=== PATIENT | female | born 1985 | race Caucasian/White ===

== ENCOUNTER 2017-04-16 08:11 | Emergency (ER) | payer OTHER ==
[2017-04-16 08:17] VITALS: BP 122/69; PULSE 100; TEMP 97.7; BMI 26.7
--- NOTE | 2017-04-16 08:53 | PDOC ---
History of Present Illness - General Chief Complaint: Cold Symptoms Stated Complaint: Cold Symptoms Time Seen by Provider: 04/16/17 08:38 History Source: Patient Exam Limitations: No Limitations - History of Present Illness Initial Comments: 04/16/17 09:11 Timing/Duration: reports: just prior to arrival Severity: reports: mild Associated Symptoms: reports: denies symptoms, cough, facial pain, nasal congestion. denies: chest pain/soreness, fever/chills, sore throat Past History - Travel Traveled outside of the country in the last 30 days: No Close contact w/someone who was outside of country & ill: No - Past Medical History Allergies/Adverse Reactions: Allergies Allergy/AdvReac Type Severity Reaction Status Date / Time No Known Allergies Allergy Verified 04/16/17 08:16 Home Medications: Ambulatory Orders Cetirizine HCl [Zyrtec -] 10 mg DAILY 04/16/17 Pnv No.122/Iron/Folic Acid [ Multi Tablet] 1 tab DAILY 04/16/17 Other medical history: none - Psycho/Social/Smoking Cessation Hx Anxiety: No Suicidal Ideation: No Smoking Status: Yes Smoking History: Never smoked Number of Cigarettes Smoked Daily: 1 Hx Alcohol Use: No Drug/Substance Use Hx: No Substance Use Type: None Respiratory Specific PMHX - Complaint Specific PMHX Bronchitis: No Pneumonia: No Review of Systems - Review of Systems Able to Perform ROS?: Yes Is the patient limited Haitian proficient: Yes Constitutional: Yes: Symptoms Reported, See HPI, Malaise. No: Fever, Loss of Appetite HEENTM: Yes: Symptoms Reported, See HPI, Ear Pain, Nose Congestion, Other ( symptoms as tenderness,). No: Difficulty Swallowing Respiratory: Yes: Symptoms reported, See HPI. No: Cough, Shortness of Breath Musculoskeletal: No: Symptoms Reported Integumentary: Yes: See HPI. No: Symptoms Reported All Other Systems: Reviewed and Negative *Physical Exam - Vital Signs Last Vital Signs Temp Pulse Resp BP Pulse Ox 97.7 F 100 H 20 122/69 100 04/16/17 08:13 04/16/17 08:13 04/16/17 08:13 04/16/17 08:13 04/16/17 08:13 - Physical Exam General Appearance: Yes: Nourished, Appropriately Dressed, Apparent Distress, Mild Distress HEENT: positive: HEATHER, Normal ENT Inspection, Rhinorrhea, Sinus Tenderness ( mild frontal sinus tenderness, but no crepitus or step-offs. Has some clear nasal drainage, and noted posterior sinus drainage that appears clear. No redness swelling or exudate and tonsils.). negative: TMs Normal Neck: positive: Supple. negative: Tender Respiratory/Chest: positive: Lungs Clear, Normal Breath Sounds. negative: Respiratory Distress Cardiovascular: positive: Regular Rhythm Extremity: positive: Normal Capillary Refill, Normal Inspection Integumentary: positive: Normal Color, Dry, Warm Neurologic: positive: shell trim operator II-XII NML intact, Fully Oriented, Alert, Normal Mood/ Affect, Normal Response, Motor Strength /5 Progress Note - Progress Note Progress Note: Allergic rhinitis we will treat with antihistamines and conservative measures, no evidence of bacterial infection. *DC/Admit/Observation/Transfer Diagnosis at time of Disposition: Allergic rhinitis Qualifiers: Chronicity: acute Allergic rhinitis trigger: unspecified Allergic rhinitis seasonality: unspecified seasonality Qualified Code(s): J30.9 - Allergic rhinitis, unspecified - Discharge Dispostion Disposition: HOME Condition at time of disposition: Stable Admit: No - Referrals Referrals: Katy Brown MD [Primary Care Provider] - - Patient Instructions Printed Discharge Instructions: DI for Allergic Rhinitis Additional Instructions: Rest, drink lots of fluids: Teas, water, soups Saltwater gargles. Consider humidifier in room at night Steamy showers/seem to face break up mucus Avoid contact with allergens, exposure to pollens, close windows on a windy day Lots of handwashing and good hygiene Continue [id number] medications for symptomatic relief- may use allergic eyedrops for itching I Continue antihistamines daily until pollen season is over; Benadryl at nighttime as will make sleepy Tylenol or Motrin for fever and pain Ear solution, 3-5 drops times a day for 5 days Followup with private physician in one to 2 days as needed Consider following up with an woodworking shop hand/draw press operator for skin testing and possible allergy shots Return to emergency department for worsened symptoms, fevers, dehydration - Post Discharge Activity Work/School Note: Back to Work
--- NOTE | 2017-04-16 09:51 | PDOC ---
History of Present Illness - General Chief Complaint: Cold Symptoms Stated Complaint: Cold Symptoms Time Seen by Provider: 04/16/17 08:38 History Source: Patient Exam Limitations: No Limitations - History of Present Illness Initial Comments: 04/17/17 07:25 Patient is 3 months , and here with complaints of runny nose, stuffiness , sinus pressure and clear drainage. Denies fevers, but feels may be adding another sinus infection. Has not taken any medication. Timing/Duration: reports: constant, changing over time Severity: reports: mild Past History - Travel Traveled outside of the country in the last 30 days: No Close contact w/someone who was outside of country & ill: No - Past Medical History Allergies/Adverse Reactions: Allergies Allergy/AdvReac Type Severity Reaction Status Date / Time No Known Allergies Allergy Verified 04/16/17 08:16 Home Medications: Ambulatory Orders Cetirizine HCl [Zyrtec -] 10 mg DAILY 04/16/17 Pnv No.122/Iron/Folic Acid [ Multi Tablet] 1 tab DAILY 04/16/17 Other medical history: none - Psycho/Social/Smoking Cessation Hx Anxiety: No Suicidal Ideation: No Smoking Status: Yes Smoking History: Never smoked Number of Cigarettes Smoked Daily: 1 Hx Alcohol Use: No Drug/Substance Use Hx: No Substance Use Type: None Respiratory Specific PMHX - Complaint Specific PMHX Bronchitis: No Pneumonia: No Review of Systems - Review of Systems Able to Perform ROS?: Yes Is the patient limited Stateless proficient: Yes Constitutional: Yes: Symptoms Reported, See HPI, Chills, Malaise. No: Fever, Loss of Appetite HEENTM: Yes: Symptoms Reported, Nose Congestion Respiratory: Yes: Symptoms reported, See HPI, Cough (moist nonproductive). No: Wheezing Cardiac (ROS): No: Symptoms Reported Musculoskeletal: Yes: Symptoms Reported Integumentary: Yes: Symptoms Reported All Other Systems: Reviewed and Negative *Physical Exam - Vital Signs Last Vital Signs Temp Pulse Resp BP Pulse Ox 97.7 F 100 H 20 122/69 100 04/16/17 08:13 04/16/17 08:13 04/16/17 08:13 04/16/17 08:13 04/16/17 08:13 - Physical Exam General Appearance: Yes: Nourished, Appropriately Dressed, Apparent Distress HEENT: positive: HEATHER, Normal ENT Inspection, TMs Normal, Pharynx Normal, Rhinorrhea, Sinus Tenderness (, no erythema, and not severely painful). negative: Pharyngeal Erythema Neck: positive: Tender, Supple. negative: Lymphadenopathy (R), Lymphadenopathy (L) Respiratory/Chest: positive: Lungs Clear, Normal Breath Sounds Cardiovascular: positive: Regular Rhythm Gastrointestinal/Abdominal: positive: Normal Bowel Sounds, Soft. negative: Tender Extremity: positive: Normal Range of Motion Integumentary: positive: Normal Color, Dry, Warm Neurologic: positive: rubber goods inspector tester II-XII NML intact, Fully Oriented, Alert, Normal Mood/ Affect, Normal Response, Motor Strength 5 Progress Note - Progress Note Progress Note: Allergic Rhinitis, Will treat with Benadryl and conservative measures *DC/Admit/Observation/Transfer Diagnosis at time of Disposition: Allergic rhinitis Qualifiers: Chronicity: acute Allergic rhinitis trigger: unspecified Allergic rhinitis seasonality: unspecified seasonality Qualified Code(s): J30.9 - Allergic rhinitis, unspecified - Discharge Dispostion Disposition: HOME Condition at time of disposition: Stable Admit: No - Referrals Referrals: Katy Brown MD [Primary Care Provider] - - Patient Instructions Printed Discharge Instructions: DI for Allergic Rhinitis Additional Instructions: Rest, drink lots of fluids: Teas, water, soups Saltwater gargles. Consider humidifier in room at night Steamy showers/seem to face break up mucus Avoid contact with allergens, exposure to pollens, close windows on a windy day Lots of handwashing and good hygiene Continue [id number] medications for symptomatic relief- may use allergic eyedrops for itching I Continue antihistamines daily until pollen season is over; Benadryl at nighttime as will make sleepy Tylenol or Motrin for fever and pain Ear solution, 3-5 drops times a day for 5 days Followup with private physician in one to 2 days as needed Consider following up with an printing press operator/dental ceramist helper for skin testing and possible allergy shots Return to emergency department for worsened symptoms, fevers, dehydration - Post Discharge Activity Work/School Note: Back to Work
== END 2017-04-16 11:13 | disposition home or self-care (01) ==
LOC: JERFT 08:11
DX: J30.9 Allergic rhinitis, unspecified (principal)
CPT/HCPCS: 99281-25

== ENCOUNTER 2017-09-23 06:25 | Inpatient (IN) | payer OTHER ==
[2017-09-23] MEDS ORDERED: CITRIC ACID/SODIUM CITRATE 30 ML UNIT-DOSE CUP PO ONE (06:52)
[2017-09-23] MEDS ORDERED: ELECTROLYTE-148 SOLN 500 ML IV ONE (06:52)
[2017-09-23 07:31] VITALS: BMI 31.3
[2017-09-23] MEDS: ELECTROLYTE-148 SOLN 1,000 ML IV SCH (07:37)
[2017-09-23] MEDS ORDERED: TUBERCULIN PPD 5 TU/0.1ML SYRINGE (IN PATIENT USE ONLY) ID ONE (08:00)
[2017-09-23] MEDS ORDERED: oxyCODONE HCL 5 MG TABLET PO PRN ×2 (08:15)
[2017-09-23] MEDS ORDERED: METHYLERGONOVINE MALEATE 0.2 MG/1 ML AMP IM PRN (08:15)
[2017-09-23] MEDS ORDERED: SENNOSIDES/DOCUSATE COMBO (SENNA PLUS) TABLET (UD) PO PRN (08:15)
[2017-09-23] MEDS ORDERED: IBUPROFEN 600 MG TABLET (FP) PO PRN (08:15)
--- NOTE | 2017-09-23 08:22 | HP ---
Past Medical History - Primary Care Physician PCP:: Rosario Villa - Admission Chief Complaint: Here for scheduled delivery History of Present Illness: 31 y/o with SIUP at 39 weeks here for scheduled delivery 2/2 malpresentation. Baby breech in office at last check, on bedside ultrasound today, baby transverse with head to maternal right. uncomplciated. History Source: Patient, Medical Record Limitations to Obtaining History: No Limitations - Past Medical History Cardiovascular: No: HTN Pulmonary: No: Asthma, COPD Gastrointestinal: No: GERD, Irritable Bowel Disease Hepatobiliary: No: Hepatitis B, Hepatitis C Renal/: No: UTI ...: 3 ...Para: 1 ...Term: 1 ...: 0 ...Induced : 1 ...LMP: 12/24/16 ... Weeks Gestation by Dates: 39.1 ...EDC by Dates: 09/29/17 ...EDC by Sono: 09/29/17 Heme/Onc: No: Anemia Infectious Disease: Yes: STD's (h/o Chlamdyia in 2008). No: HIV, MRSA Endocrine: No: Hyperthyroidism, Hypothyroidism - Past Surgical History Past Surgical History: Yes: None Hx Myomectomy: No Hx Transabdominal Cerclage: No - Smoking History Smoking history: Never smoked Have you smoked in the past 12 months: No Aproximately how many cigarettes per day: 1 - Alcohol/Substance Use Hx Alcohol Use: No - Social History Usual Living Arrangement: Yes: With Spouse ADL: Independent History of Recent Travel: No Home Medications - Allergies Allergies/Adverse Reactions: Allergies Allergy/AdvReac Type Severity Reaction Status Date / Time No Known Allergies Allergy Verified 04/16/17 08:16 - Home Medications Home Medications: Ambulatory Orders Pnv No.122/Iron/Folic Acid [ Multi Tablet] 1 tab DAILY 04/16/17 Probiotic 1 tab PO DAILY 09/23/17 Review of Systems - Review of Systems Constitutional: reports: No Symptoms Eyes: reports: No Symptoms HENT: reports: No Symptoms Neck: reports: No Symptoms Cardiovascular: reports: No Symptoms Respiratory: reports: No Symptoms Gastrointestinal: reports: No Symptoms Genitourinary: reports: No Symptoms Breasts: reports: No Symptoms Reported Musculoskeletal: reports: No Symptoms Integumentary: reports: No Symptoms Neurological: reports: No Symptoms Endocrine: reports: No Symptoms Hematology/Lymphatic: reports: No Symptoms Psychiatric: reports: No Symptoms Physical Exam - Maternity Vital Signs: Vital Signs Temperature 98.4 F 09/23/17 07:20 Pulse Rate 85 09/23/17 07:20 Respiratory Rate 20 09/23/17 07:20 Blood Pressure 138/81 09/23/17 07:20 O2 Sat by Pulse Oximetry (%) Constitutional: Yes: Well Nourished, No Distress, Calm Eyes: Yes: Conjunctiva Clear, EOM Intact HENT: Yes: Atraumatic, Normocephalic Neck: Yes: Supple, Trachea Midline Cardiovascular: Yes: Regular Rate and Rhythm Lungs: Clear to auscultation - Abdominal Exam/OB Number of Fetuses: Single Presentation: Transverse Category: I Accelerations: Uniform Decelerations: None - Vaginal Exam/OB Amniotic Membrane Status: Intact - Physical Exam Psychiatric: Yes: Alert, Oriented Hemorrhage Risk Assessment - Risk Factors Medium Risk Factors: Yes: None High Risk Factors: Yes: None Risk Score: 1 Risk Level: Medium Risk Problem List - Problems (1) Malpresentation of fetus Code(s): O32.9XX0 - MATERNAL CARE FOR MALPRESENTATION OF FETUS, UNSP, UNSP (2) Term Code(s): Z34.80 - ENCOUNTER FOR SUPRVSN OF NORMAL , UNSP TRIMESTER Assessment/Plan 31 y/o with SIUP at 39 weeks, for c section 2/2 malpresentatin - AFVSS - FHTS cat 1 - NPO, SCDs, Sethi - for delivery, nursing and anesthesia aware - consents signed
[2017-09-23] MEDS ORDERED: ONDANSETRON 4 MG/2 ML VIAL IVPUSH PRN (08:31)
--- NOTE | 2017-09-23 09:24 | SURG ---
Surgery President And Chief Operating Officer Note President And Chief Operating Officer: Ambrosio Ulloa PA-C Date of Service: 09/23/17 Diagnosis: Single intrauterine (39 weeks) here for scheduled delivery 2/ 2 malpresentation Procedure: section I was present for the entirety of the operative procedure. For further detail, please refer to operative report. Visit type - Case Type Case Type: Scheduled Admission - New patient This patient is new to me today: Yes Date on this admission: 09/23/17
--- NOTE | 2017-09-23 09:54 | OP ---
Operative Note - Note: Operative Date: 09/23/17 Pre-Operative Diagnosis: malpresentation - transverse Operation: primary low transverse delivery Findings: normal b/l tubes and ovaries Post-Operative Diagnosis: Same as Pre-op Surgeon: Rosario Villa Skin Lifter Bacon: Ambrosio Ulloa Anesthesiologist/HOUSEHOLD APPLIANCE INSTALLER: Marko Chavez Anesthesia: Spinal Specimens Removed: placenta, cord blood collection Estimated Blood Loss (mls): 700 Operative Report Dictated: Yes
[2017-09-23] MEDS: OXYTOCIN 20 UNITS in 0.9% NS 20 UNIT/1,000 ML INFUS.BAG IV SCH (10:33)
[2017-09-23] MEDS: IBUPROFEN 800 MG/8 ML IJ IVPB PRN ×2 (11:16→22:06)
--- NOTE | 2017-09-23 13:18 | OP ---
DATE OF OPERATION: 09/23/2017 PREOPERATIVE DIAGNOSIS: Malpresentation, single intrauterine at 39 weeks. POSTOPERATIVE DIAGNOSIS: Malpresentation, single intrauterine at 39 weeks. PROCEDURE: Primary low transverse section. SURGEON: Rosario Villa DO MANAGER IT SECURITY: PATRICIO Maguire ANESTHESIA: Spinal by Dr. Chavez ESTIMATED BLOOD LOSS: 700 mL. COMPLICATIONS: None. Sponge, needle, and instrument count correct at the end of the case. DISPOSITION: Stable to PACU. BRIEF HISTORY AND PROCEDURE: The patient is a 31-year-old female with a known malpresenting fetus who was counseled on her options in the office including an external cephalic version versus a delivery. The patient declined attempted external cephalic version and elected to undergo a primary delivery. The patient was admitted to [facility] on September 23, 2017 for scheduled delivery. Consents for the patient were signed upon admission. Ultrasound upon admission revealed oblique presentation. The patient was taken to the operating room and given spinal anesthesia by Dr. Chavez without complication. She was then placed in the dorsal supine position. A Sethi catheter was placed under sterile conditions then she was prepped and draped in the usual sterile fashion, and a hard time-out was performed. A Pfannenstiel skin incision was created in the skin with a scalpel and carried to the underlying layer of rectus fascia with the Bovie. The fascia was incised on either side, and the fascial incision was carried in a superolateral fashion bluntly. The rectus fascia was tented upward and tended off the underlying rectus muscle with the bovie. The musculature was retracted laterally and then the peritoneum was entered bluntly, and a bladder blade was inserted. A transverse incision was created in the uterus, which was carried in a superolateral direction. The 's head was found to be in the transverse position in the right lower quadrant. The was able to be delivered from the vertex position. The anterior shoulder, which was the right shoulder, delivered easily with the rest of the . The cord was clamped twice and cut and taken over to the warmer to be assessed by Neonatology staff. After delayed cord clamping was completed, the placenta was then delivered intact with a 3-vessel cord. It was manually extracted. The uterus was exteriorized from the abdomen, inspected, and cleared of all amniotic membrane and debris. The hysterotomy was reapproximated in 2-layer closure using 1 Vicryl in a running locked fashion and the 2nd layer imbricating layer using 0 Biosyn. Bilateral tubes and ovaries were inspected and noted to be within normal limits. The posterior cul-de-sac was suctioned. The uterus was placed back into the abdomen. Bilateral gutters were inspected and cleared of all debris and blood clot. The hysterotomy was, again, inspected, and the areas of bleeding were sutured with [id number] sutures to achieve hemostasis. Next, the peritoneum was reapproximated in a running fashion using 2-0 chromic. The musculature was reapproximated using 2 interrupted sutures using 2-0 chromic suture. The fascia was reapproximated using 1 Vicryl in a running fashion. The subcutaneous tissue was irrigated and reapproximated in a running fashion, and the skin was reapproximated in a subcuticular fashion, and Steri- Strips were applied. The patient tolerated the procedure well. Sponge, needle, and instrument count was reported to be correct. The patient was recovering in stable condition in the PACU on the labor and delivery floor at the time of this dictation. ROSARIO VILLA DO /[id number] MTDD
[2017-09-23] MEDS: ACETAMINOPHEN 325 MG TABLET (FP) PO PRN (16:34)
[2017-09-23] MEDS: SIMETHICONE 80 MG TAB.CHEW (FP) PO PRN (16:34)
[2017-09-24] MEDS: IBUPROFEN 800 MG/8 ML IJ IVPB PRN (05:52)
[2017-09-24] MEDS ORDERED: BISACODYL 10 MG SUPP.RECT RC PRN (08:15)
[2017-09-24 08:53] LABS: BASOPHIL 0.3 % (0-2.0); EOSINOPHIL 0.5 % (0-4.5); MCH 30.6 pg (25.7-33.7); MCHC 34.6 g/dl (32.0-36.0); MEAN CELL VOLUME 88.5 fl (80-96); MEAN PLT VOLUME 8.5 fl (7.5-11.1); NEUTROPHILS 84.3 % (42.8-82.8); PLATELET COUNT 134 K/MM3 (134-434); RDW 13.8 % (11.6-15.6); WHITE BLOOD COUNT 10.7 K/mm3 (4.0-10.0)
[2017-09-24] MEDS: PRENATAL VITAMINS W/ FOLIC ACID TABLET (FP) PO SCH (09:28)
--- NOTE | 2017-09-24 09:33 | PN ---
Progress Note (short form) - Note Progress Note: Anesthesia POD#1 S/P Primary under spinal anesthesia VSS,no N/V,walking and eating ok. No complaints. Keyonna Lea MD.
--- NOTE | 2017-09-24 09:49 | PN ---
Post Progress Note - Subjective Subjective: Pt seen/evaluated and doing well. Had some pain early this a.m. but improved s/ p medication. Tolerating clears, Ambulating with assistance. Sethi catheter removed this a.m. and awaiting first void. Denies CP/SOB/F/C/[place]. VB moderate but decreasing. Type of Delivery: Primary C/S Vital Signs: Vital Signs Temperature 97.1 F L 09/24/17 08:21 Pulse Rate 76 09/24/17 08:21 Respiratory Rate 18 09/24/17 08:21 Blood Pressure 120/73 09/24/17 08:21 O2 Sat by Pulse Oximetry (%) Uterus: Yes: Fundus Firm, Fundus below umbilicus Incision: Yes: Dressing dry and intact Abdomen/GI: Yes: Abdomen soft, Tender (appropriate post surgical tenderness), Tolerating PO. No: Passing flatus Lochia, amount: Small Extremities: Yes: Calves non-tender, Edema (trace LE edema b/l, non pitting) Perineum: Yes: Intact Activity: Ambulating - Labs Labs: CBC WBC 10.7 K/mm3 (4.0-10.0) H D 09/24/17 08:00 RBC 3.12 M/mm3 (3.60-5.2) L 09/24/17 08:00 Hgb 9.6 GM/dL (10.7-15.3) L D 09/24/17 08:00 Hct 27.6 % (32.4-45.2) L D 09/24/17 08:00 MCV 88.5 fl (80-96) 09/24/17 08:00 MCH 30.6 pg (25.7-33.7) 09/24/17 08:00 MCHC 34.6 g/dl (32.0-36.0) 09/24/17 08:00 RDW 13.8 % (11.6-15.6) 09/24/17 08:00 Plt Count 134 K/MM3 (134-434) 09/24/17 08:00 MPV 8.5 fl (7.5-11.1) 09/24/17 08:00 Neutrophils % 84.3 % (42.8-82.8) H 09/24/17 08:00 Lymphocytes % 9.7 % (8-40) D 09/24/17 08:00 Monocytes % 5.2 % (3.8-10.2) 09/24/17 08:00 Eosinophils % 0.5 % (0-4.5) 09/24/17 08:00 Basophils % 0.3 % (0-2.0) 09/24/17 08:00 Problem List - Problems (1) Malpresentation of fetus Code(s): O32.9XX0 - MATERNAL CARE FOR MALPRESENTATION OF FETUS, UNSP, UNSP (2) Term Code(s): Z34.80 - ENCOUNTER FOR SUPRVSN OF NORMAL , UNSP TRIMESTER (3) delivery delivered Code(s): O82 - ENCOUNTER FOR DELIVERY WITHOUT INDICATION Assessment/Plan 31 y/o POD#1 s/p primary delivery for transverse presentation - AFVSS - Hgb 9.6 this a.m., pt stable, no signs/sx of anemia - will continue with vitamins and give oral iron - advance diet as tolerated - encourage ambulation - SCDs while in bed, lovenox for VTE PPx - routine care
[2017-09-24] MEDS: ENOXAPARIN NA (PORCINE) 40 MG/0.4 ML DISP.SYRIN SQ SCH (10:00)
[2017-09-24] MEDS ORDERED: DIPHTH,PERTUSS(ACELL),TET 0.5 ML DISP.SYRIN IM ONE (10:00)
[2017-09-24] MEDS: SIMETHICONE 80 MG TAB.CHEW (FP) PO PRN ×3 (10:48→22:30)
[2017-09-24] MEDS: ACETAMINOPHEN 325 MG TABLET (FP) PO PRN ×3 (10:49→22:30)
[2017-09-24] MEDS: IBUPROFEN 600 MG TABLET (FP) PO PRN ×3 (10:49→22:30)
[2017-09-24] MEDS: OXYTOCIN 20 UNITS in 0.9% NS 20 UNIT/1,000 ML INFUS.BAG IV SCH (17:56)
[2017-09-24] MEDS: ELECTROLYTE-148 SOLN 1,000 ML IV SCH (18:50)
[2017-09-25] MEDS: ACETAMINOPHEN 325 MG TABLET (FP) PO PRN ×4 (04:55→23:20)
[2017-09-25] MEDS: SIMETHICONE 80 MG TAB.CHEW (FP) PO PRN ×4 (04:55→23:20)
[2017-09-25] MEDS: IBUPROFEN 600 MG TABLET (FP) PO PRN ×4 (04:56→23:23)
[2017-09-25] MEDS: PRENATAL VITAMINS W/ FOLIC ACID TABLET (FP) PO SCH (09:19)
[2017-09-25] MEDS: ENOXAPARIN NA (PORCINE) 40 MG/0.4 ML DISP.SYRIN SQ SCH (09:19)
[2017-09-26] MEDS: IBUPROFEN 600 MG TABLET (FP) PO PRN ×2 (06:18→10:39)
[2017-09-26] MEDS: ACETAMINOPHEN 325 MG TABLET (FP) PO PRN ×2 (06:18→10:40)
[2017-09-26] MEDS: SIMETHICONE 80 MG TAB.CHEW (FP) PO PRN (06:19)
[2017-09-26 08:14] LABS: BASOPHIL 0.3 % (0-2.0); EOSINOPHIL 1.7 % (0-4.5); MCH 30.9 pg (25.7-33.7); MCHC 34.3 g/dl (32.0-36.0); MEAN PLT VOLUME 8.7 fl (7.5-11.1); NEUTROPHILS 73.7 % (42.8-82.8); PLATELET COUNT 147 K/MM3 (134-434); RDW 14.1 % (11.6-15.6); WHITE BLOOD COUNT 8.5 K/mm3 (4.0-10.0)
--- NOTE | 2017-09-26 08:43 | DS ---
Physical Exam-[employer]IT[employer] COUNSELOR Vital Signs: Vital Signs Temperature 97.9 F 09/25/17 20:51 Pulse Rate 70 09/25/17 20:51 Respiratory Rate 20 09/25/17 20:51 Blood Pressure 112/55 09/25/17 20:51 O2 Sat by Pulse Oximetry (%) Constitutional: Yes: Well Nourished, No Distress, Calm Eyes: Yes: Conjunctiva Clear, EOM Intact HENT: Yes: Atraumatic, Normocephalic Neck: Yes: Supple, Trachea Midline Cardiovascular: Yes: Regular Rate and Rhythm Respiratory: Yes: Regular, CTA Bilaterally Gastrointestinal: Yes: Normal Bowel Sounds, Soft External Genitalia: Yes: Normal Wound/Incision: Yes: Clean/Dry, Well Approximated Psychiatric: Yes: Alert, Oriented Labs: CBC, BMP 09/26/17 06:30 Delivery - Delivery Section: Primary, Low Flap Transverse Type of Anesthesia: Spinal Episiotomy/Laceration: None EBL (cc): 700 Delivery, Single - Stages of Labor Date of Delivery: 09/23/17 Time of Delivery: 08:38 Date Placenta Delivered: 09/23/17 Time Placenta Delivered: 08:41 - Condition of Crime Prevention Worker/Mines Safety Engineer Present: Yes Name: Christian Damon Gender: Female Weight: 7 lb 11 oz Total Hours ROM (Hrs/Mins): 1min. - 1 Minute Total Score: 9 5 Minutes Total Score: 9 - [place] Feeding Plan Initial Plan: Exclusive throughout hospitalization Discharge Summary Reason For Visit: SCHEDULED Current Active Problems delivery delivered (Acute) Malpresentation of fetus (Acute) Term (Acute) Hospital Course: PT admitted for primary delivery 2/2 transverse presentation. Pt had uncomplicated procedure and recovery and was discharged home on post op day 3. Condition: Good - Instructions Diet, Activity, Other Instructions: Physical activity Resume your normal everyday activity as tolerated no heavy lifting (more than 15 lbs) or strenuous exercise until seen by your surgeon. You may walk unlimited amounts and climb stairs. You may resume driving the car when you feel safe and comfortable behind the wheel. No sexual activity as instructed for 6 weeks. Wound care If there are tapes on the skin leave them in place. They will peel off in the next 7 to 10 days. Do Not Peel them off. You may shower the day after surgery. If there are tapes present on the skin, you may shower over them. Diet There are no dietary restrictions. Eat healthy, high-fiber foods. Drink 6 to 8 glasses of liquid each day. This will assist in keeping your bowels regular. Pain management You may take Tylenol or Ibuprofen (for example, Motrin, Advil etc.) over the counter for pain. If any pain medication is prescribed to your pharmacy please take for moderate to severe pain. Call MD for any of the following: Severe pain not relieved by medication Fever of 101 or higher Excessive bleeding or drainage on dressing Inability to urinate Referrals: Rosario Villa DO [Staff Physician] - 1 Week Disposition: HOME - Home Medications Comprehensive Discharge Medication List: Ambulatory Orders Pnv No.122/Iron/Folic Acid [ Multi Tablet] 1 tab DAILY 04/16/17 Probiotic 1 tab PO DAILY 09/23/17 Ibuprofen [Motrin -] 600 mg PO QID PRN #28 tablet 09/24/17 Oxycodone HCl/Acetaminophen [Percocet 5-325 mg Tablet -] 1 tab PO Q4H #30 tablet MDD 6 09/24/17
[2017-09-26] MEDS: ENOXAPARIN NA (PORCINE) 40 MG/0.4 ML DISP.SYRIN SQ SCH (10:38)
[2017-09-26] MEDS: PRENATAL VITAMINS W/ FOLIC ACID TABLET (FP) PO SCH (10:39)
[2017-09-26 13:27] VITALS: BP 122/72; PULSE 84; TEMP 98.4
== END 2017-09-26 12:55 | disposition home or self-care (01) | DRG 766 ==
LOC: JLDR 06:25 → J3W 11:05
PROVIDERS: ADMIT Obstetrics & Gynecology; ATTEND Obstetrics & Gynecology
PROC: 10D00Z1 Extraction of Products of Conception, Low, Open Approach (ICD-10-PCS; principal; 2017-09-23)
DX: O32.2XX0 Maternal care for transverse and oblique lie, not applicable or unspecified (principal); Z3A.39 39 weeks gestation of pregnancy; Z37.0 Single live birth
CPT/HCPCS: 36415; 85025; 88307-TC; 90715

== ENCOUNTER 2019-05-01 21:58 | Emergency (ER) | payer OTHER ==
[2019-05-01 22:06] VITALS: BP 124/82; PULSE 70; TEMP 98.4; BMI 23.6
[2019-05-01] MEDS ORDERED: DEXAMETHASONE LIQUID 0.5 MG/5 ML 240 ML BULK BOTTLE PO ONE (22:32)
[2019-05-01] MEDS ORDERED: DEXAMETHASONE SOD PHOSPHATE 10 MG/1 ML VIAL ONE (22:34)
--- NOTE | 2019-05-01 22:36 | PDOC ---
History of Present Illness - General Chief Complaint: Sore Throat Stated Complaint: THROAT PAIN Time Seen by Provider: 05/01/19 22:29 - History of Present Illness Initial Comments: 05/01/19 22:34 33 y/o F w/o CM presents for sore throat x2 weeks negatve rapid strep at another hospital 2 weeks ago. Past History - Past Medical History Allergies/Adverse Reactions: Allergies Allergy/AdvReac Type Severity Reaction Status Date / Time No Known Allergies Allergy Verified 05/01/19 22:06 Home Medications: Ambulatory Orders No122/Iron/Folic Acid [ Multi Tablet] 1 tab DAILY 04/16/17 Probiotic 1 tab PO DAILY 09/23/17 Ibuprofen [Motrin -] 600 mg PO QID PRN #28 tablet 09/24/17 Oxycodone HCl/Acetaminophen [Percocet 5-325 mg Tablet -] 1 tab PO Q4H #30 tablet MDD 6 09/24/17 Penicillin V Potassium [Pen Vee K -] 500 mg PO QID #40 tablet 05/01/19 Asthma: No Cancer: No Cardiac Disorders: No COPD: No Diabetes: No HTN: No Seizures: No Thyroid Disease: No - Suicide/Smoking/Psychosocial Hx Smoking Status: Yes Smoking History: Never smoked Have you smoked in the past 12 months: No Number of Cigarettes Smoked Daily: 1 Hx Alcohol Use: No Drug/Substance Use Hx: No Substance Use Type: None Hx Substance Use Treatment: No Review of Systems - Review of Systems Constitutional: Yes: Fever HEENTM: Yes: Throat Pain, Difficulty Swallowing *Physical Exam - Vital Signs Last Vital Signs Temp Pulse Resp BP Pulse Ox 98.4 F 70 18 124/82 98 05/01/19 22:05 05/01/19 22:05 05/01/19 22:05 05/01/19 22:05 05/01/19 22:05 - Physical Exam Comments: 05/01/19 22:35 HEAD: NC/AT EYES: Conjuntiva clear Ears: Canals and TM's normal NOSE: No d/c THROAT: Moist mucous membrances, oral pharanx clear no erythema mild exudate on R tonsil, uvula midline NECK: Supple without adenopathy CARDIAC: S1 S2 LUNGS: CTA Full and Equal breath sounds ABDOMEN: Soft NT ND MS: Full ROM in all joints without edema NEUROLOGIC: No gross sensory or motor deficits, NVID SKIN: Normal color and temperature no lesions or rashes Medical Decision Making - Medical Decision Making 05/01/19 22:47 PCN for strep *DC/Admit/Observation/Transfer Diagnosis at time of Disposition: Strep pharyngitis - Discharge Dispostion Disposition: HOME Condition at time of disposition: Stable Decision to Admit order: No - Prescriptions Prescriptions: Penicillin V Potassium [Pen Vee K -] 500 mg PO QID #40 tablet - Referrals Referrals: Hugo Gonzalez MD [Staff Physician] - - Patient Instructions Printed Discharge Instructions: Strep Throat, DI for Strep Throat - Post Discharge Activity
== END 2019-05-01 23:04 | disposition home or self-care (01) ==
LOC: JERFT 21:58
DX: J02.0 Streptococcal pharyngitis (principal); B95.0 Streptococcus, group A, as the cause of diseases classified elsewhere
CPT/HCPCS: 87880; 99281-25